=== PATIENT | male | born 2000 | race Caucasian/White ===

== ENCOUNTER 2018-05-25 19:17 | Emergency (ER) | payer SELFPAY ==
[2018-05-25 20:03] VITALS: BP 106/64
--- NOTE | 2018-05-25 20:50 | XRay Report ---
FINAL REPORT EXAM: XR FINGER(S) 2+V LT HISTORY: 5th digit laceration TECHNIQUE: AP, lateral, and oblique views of the left 5th finger PRIORS: None. FINDINGS: There is no evidence for acute fracture or dislocation. No soft tissue swelling or radiopaque foreign bodies are seen. Overlying bandaging is present over the distal tip of the finger. Bony mineralization is normal and joint spaces are maintained. IMPRESSION: No acute bony or soft tissue abnormality noted.
--- NOTE | 2018-05-25 21:43 | Emergency Department Report ---
ED Laceration HPI - HPI Chief Complaint: Laceration/Recheck/Suture Stated Complaint: CUT FINGER Occurred When: Today Location: Upper Extremity (left fifth finger) Severity: severe Tetanus Status: Not up to Date Laceration Symptoms: Yes Pain, No Foreign Body Sensation, No Numbness, No Weakness Other History: System 17-year-old male who presents with a laceration to left pinky finger. 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 Patient states he cleaned area with soap and water and sprayed antiseptic spray to wound. He then wrapped with gauze and came directly here for evaluation. Patient states he is unsure of last tetanus vaccine. Patient denies medical and surgical history. Patient states finger feels that he is still able to bend and move it. Patient denies swelling, loss of consiousness, and nausea or vomiting. ED Review of Systems ROS: Stated complaint: CUT FINGER Other details as noted in HPI Constitutional: denies: chills, fever Respiratory: denies: cough, shortness of breath, wheezing Cardiovascular: denies: chest pain, palpitations Gastrointestinal: denies: abdominal pain, nausea, diarrhea Skin: lesions (laceration to left fifth finger). denies: rash Neurological: denies: headache, weakness, numbness, paresthesias Psychiatric: denies: anxiety, depression ED Past Medical Hx - Past Medical History Previous Medical History?: No - Surgical History Past Surgical History?: No - Social History Smoking Status: Never Smoker Substance Use Type: None - Medications Home Medications: Home Medications Medication Instructions Recorded Confirmed Last Taken Type Sulfamethoxazole/Trimethoprim 1 each PO BID #14 tablet 05/25/18 Unknown Rx [Bactrim DS TAB] Laceration Physical Exam - Exam General: Vital signs noted. No distress. Alert and acting appropriately. Wound Length (cm): 1 Laceration Location: Upper Extremity (left 5th phalanx) Full Body Front + Back: 1 - 1 cm laceration into muscle to 5th distal phalanx, bloody discharge, no tendon or vessals visualized Laceration Exam: Yes Normal Distal CMS, No Foreign Body, No Exposed Tendon, Vessel, or Nerve, No Tendon Injury ED Course Vital Signs 05/25/18 19:57 Temperature 98.1 F Pulse Rate 50 L Respiratory 18 Rate Blood Pressure 106/64 O2 Sat by Pulse 100 Oximetry ED Medical Decision Making - Radiology Data Radiology results: report reviewed, image reviewed EXAM: XR FINGER(S) 2+V LT HISTORY: 5th digit laceration TECHNIQUE: AP, lateral, and oblique views of the left 5th finger PRIORS: None. FINDINGS: There is no evidence for acute fracture or dislocation. No soft tissue swelling or radiopaque foreign bodies are seen. Overlying bandaging is present over the distal tip of the finger. Bony mineralization is normal and joint spaces are maintained. IMPRESSION: No acute bony or soft tissue abnormality noted. - Medical Decision Making This is a 17 y.o. male presents with left 5th digit laceration today. Patient examined by me. X-ray of left hand obtained and No acute bony or soft tissue abnormality noted. Patient is non-toxic appearing and stable. Laceration closed with sutures, review know. Patient given tetanus vaccine. Discharged home for outpatient treatment with bactrim. Discussed ER care plan with patient. Patient agreed with plan. F/U with PCP. Critical care attestation.: If time is entered above; I have spent that time in minutes in the direct care of this critically ill patient, excluding procedure time. ED Disposition Clinical Impression: Laceration of finger of left hand Qualifiers: Encounter type: initial encounter Finger: little finger Damage to nail status: without damage Foreign body presence: without foreign body Qualified Code(s): S61.217A - Laceration without foreign body of left little finger without damage to nail, initial encounter Disposition: DC-01 TO HOME OR SELFCARE Is pt being admited?: No Does the pt Need Aspirin: No Condition: Stable Instructions: Suture Care (ED), Laceration (ED) Additional Instructions: Take antibiotics as prescribed for the full course. Keep wound dry and clean for 48 hours. Avoid putting to much tension on wound site. Prop arm up on pillows to decrease swelling. Follow up with Primary Care Provider in 2-3 days. Have sutures removed in 7 days by primary care provider or in ER. Return to ER if red, swollen, foul discharge, or fever. Prescriptions: Sulfamethoxazole/Trimethoprim [Bactrim DS TAB] 1 each PO BID #14 tablet Referrals: [facility] [Provider Group] - 3-5 Days NADINE DRISCOLL MD [Staff Physician] - 3-5 Days [facility] [Outside] - 3-5 Days Forms: Work/School Release Form(ED) Time of Disposition: 22:35 Print Language: LATVIAN
[2018-05-25] MEDS ORDERED: XYLOCAINE 2% INFILTRATI ONE (21:50)
[2018-05-25] MEDS ORDERED: BOOSTRIX IM ONE (21:55)
== END 2018-05-25 22:55 | disposition home or self-care (01) ==
LOC: ED 19:17
DX: S61.217A Laceration without foreign body of left little finger without damage to nail, initial encounter (principal); W31.83XA Contact with special construction vehicle in stationary use, initial encounter; Y93.89 Activity, other specified; Y92.513 Shop (commercial) as the place of occurrence of the external cause; Y99.0 Civilian activity done for income or pay
CPT/HCPCS: 90715; 99283